=== PATIENT | female | born 1960 | race African-American/Black ===

== ENCOUNTER 2016-07-20 19:11 | Emergency (ER) | payer OTHER ==
[~2016-07-20] VITALS: Ht 162.6 cm; Wt 86.2 kg
[2016-07-20] MEDS ORDERED: MORPHINE SULFATE 4 MG/1 ML DISP.SYRIN IM ONE (19:45)
[2016-07-20] MEDS ORDERED: ONDANSETRON ODT 4 MG TAB.RAPDIS SL ONE (19:45)
[2016-07-20] MEDS ORDERED: MORPHINE SULFATE 4 MG/1 ML DISP.SYRIN ONE (19:50)
[2016-07-20] MEDS ORDERED: ONDANSETRON ODT 4 MG TAB.RAPDIS ONE (19:50)
[2016-07-20] MEDS ORDERED: CYCLOBENZAPRINE HCL 10 MG TABLET ONE (20:30)
[2016-07-20] MEDS ORDERED: CYCLOBENZAPRINE HCL 10 MG TABLET PO ONE (20:30)
--- NOTE | 2016-07-20 20:45 | NUR ---
Patient discharged to home in stable conditon. Written and verbal after care instructions given. Patient verbalizes understanding of instructions.
== END 2016-07-20 20:46 | disposition home or self-care (01) ==
LOC: ER 19:19
DX: S40.011A Contusion of right shoulder, initial encounter (principal); S70.01XA Contusion of right hip, initial encounter; M62.838 Other muscle spasm; W18.30XA Fall on same level, unspecified, initial encounter; Y93.89 Activity, other specified; Y99.8 Other external cause status; Y92.89 Other specified places as the place of occurrence of the external cause
CPT/HCPCS: 73030; 73502; 96372; 99284; A4663; J2270; Q0162

== ENCOUNTER 2016-07-26 22:46 | Emergency (ER) | payer OTHER ==
[~2016-07-26] VITALS: Ht 162.6 cm; Wt 86.2 kg
--- NOTE | 2016-07-26 23:00 | NUR ---
PT IN THE ROOM, STATED HAD FEVER TODAY AND WAS NOT FEELING WELL,CALLED 911 AND WAS STABLE . PT STILL NOT FEELING WELL SO THEY CAME TO ER.
[2016-07-26] MEDS ORDERED: KETOROLAC TROMETHAMINE 30 MG INJ IVP ONE (23:30)
[2016-07-26] MEDS ORDERED: IV NORMAL SALINE 1000 ML BAG IV ONE ×2 (23:30)
[2016-07-26] MEDS ORDERED: METOCLOPRAMIDE HCL 10 MG/2 ML VIAL IV ONE (23:30)
[2016-07-26] MEDS ORDERED: ACETAMINOPHEN ES 500 MG TABLET PO ONE (23:30)
[2016-07-26] MEDS ORDERED: MORPHINE SULFATE 2 MG/1 ML DISP.SYRIN IV ONE (23:30)
--- NOTE | 2016-07-26 23:49 | NUR ---
CALLED FOR SEPSIS, EKG,LABS AND FLUIDS STARTED ORDERED.
[2016-07-26] MEDS ORDERED: METOCLOPRAMIDE HCL 10 MG/2 ML VIAL ONE (23:50)
[2016-07-26] MEDS ORDERED: KETOROLAC TROMETHAMINE 30 MG INJ ONE (23:50)
[2016-07-26] MEDS ORDERED: MORPHINE SULFATE 4 MG/1 ML DISP.SYRIN ONE (23:51)
[2016-07-26 23:55] LABS: BASOPHILS % (AUTO) 0.2 % (0.0-2.0); EOSINOPHILS % (AUTO) 0.4 % (0.0-7.0); HEMATOCRIT 36.8 % (31.2-41.9); HEMOGLOBIN 12.8 g/dL (10.9-14.3); LYMPHOCYTES # (AUTO) 0.7 K/uL (20.0-40.0); LYMPHOCYTES % (AUTO) 9.6 % (20.5-51.5); MEAN CORPUSCULAR HEMOGLOBIN 28.5 uug (24.7-32.8); MEAN CORPUSCULAR HGB CONC 35 g/dL (32.3-35.6); MEAN CORPUSCULAR VOLUME 81.9 fL (75.5-95.3); MONOCYTES # (AUTO) 0.2 K/uL (2.0-10.0); MONOCYTES % (AUTO) 2.6 % (0.0-11.0); NEUTROPHILS # (AUTO) 6.5 K/uL (1.8-8.9); NEUTROPHILS % (AUTO) 87.2 % (38.5-71.5); PLATELET COUNT (AUTO) 282 K/uL (179-408); RED CELL DISTRIBUTION WIDTH 13.9 % (12.3-17.7); WHITE BLOOD COUNT (AUTO) 7.4 K/uL (3.8-11.8)
[2016-07-27 00:03] LABS: ALANINE AMINOTRANSFERASE 64 U/L (14-59); ALBUMIN 3.7 g/dL (3.4-5.0); ALKALINE PHOSPHATASE 161 U/L (50-136); ASPARTATE AMINOTRANSFERASE 62 U/L (15-37); BILIRUBIN,DIRECT < 0.1 mg/dL (0.0-0.2); BILIRUBIN,TOTAL 0.7 mg/dL (0.2-1.0); CALCIUM 9.7 mg/dL (8.5-10.1); CARBON DIOXIDE 25 mmol/L (21-32); CHLORIDE 103 mmol/L (98-107); CREATININE 0.9 mg/dL (0.6-1.3); GFR 78 mL/min (>60); GLUCOSE 107 mg/dL (74-106); POTASSIUM 4.9 mmol/L (3.5-5.1); SODIUM SERUM 139 mmol/L (136-145); TOTAL PROTEIN, SERUM 7.7 g/dL (6.4-8.2); UREA NITROGEN, BLOOD 19 mg/dL (7-18)
[2016-07-27] MEDS ORDERED: ACETAMINOPHEN ES 500 MG TABLET ONE (00:24)
--- NOTE | 2016-07-27 01:00 | NUR ---
URINE SENT TO LAB AND RESULTS IN. CAME TO SPEAK TO PT RE-RESULTS,PT REFUSED SPINAL TESTING. ANTIBIOTICS WILL BE GIVEN BEFORE GOING HOME, FLUIDS CONTINUES ORDERED.
[2016-07-27 01:09] LABS: *BILIRUBIN,URIN NEGATIVE (NEGATIVE); *BLOOD, URINE NEGATIVE (NEGATIVE); *CLARITY,URINE CLEAR (CLEAR); *COLOR,URINE YELLOW (YELLOW); *KETONES,URINE NEGATIVE (NEGATIVE); *PROTEIN,URINE NEGATIVE (NEGATIVE); *UROBILINOGEN,URINE 0.2 E.U./dl (NORMAL); LEUKOCYTE ESTERASE ,URINE NEGATIVE (NEGATIVE); NITRITE, URINE NEGATIVE (NEGATIVE); PH,URINE 6.5 (5.0-8.0); UGLUCOSE NEGATIVE (NEGATIVE)
[2016-07-27 01:14] LABS: BACTERIA,URINE FEW /HPF (NONE SEEN); RBC,URINE NONE SEEN /HPF (0-3); SQUAMOUS EPITHELIAL CELL,UR FEW /HPF (NONE SEEN); WBC,URINE 0-3 /HPF (0-3)
[2016-07-27] MEDS ORDERED: CEFTRIAXONE 1 G in IV DEXTROSE 5% 50 ML IV ONE (02:00)
[2016-07-27] MEDS ORDERED: CEFTRIAXONE 1 G VIAL ONE (02:10)
--- NOTE | 2016-07-27 03:00 | NUR ---
ANTIBIOTICS GIVEN IV WITHOUT ANY UNTOWARD REACTION.ACI AND AMA FORM SIGNED BY PT, ASSISTED TO DRESS UP,AND WALKED TO THE CAR STEADY GAIT, FAMILY DRIVING...GOING HOME.
--- NOTE | 2016-07-27 03:01 | NUR ---
PT ADVISED TO GO TO HER DR SOON POSS FOR FOLLOW-UP AND IF SYMPTOMS CONTINUES OR WORSE TO COME BACK.PT VERBALIZED UNDERSTANDING BEFORE GOING HOME.
[2016-07-27 03:18] VITALS: BP 130/62
== END 2016-07-27 03:20 | disposition home or self-care (01) ==
LOC: ER 22:50
DX: R50.9 Fever, unspecified (principal); R10.9 Unspecified abdominal pain; R30.0 Dysuria; R51 Headache; Z90.710 Acquired absence of both cervix and uterus
CPT/HCPCS: 36415; 71010; 83605; 85025; 85730; 87040; 87086; 93005; A4663; J0696; J1885; J2270; J2765; J7030; J7060

== ENCOUNTER 2016-07-29 10:38 | Emergency (ER) | payer OTHER ==
[~2016-07-29] VITALS: Ht 162.6 cm; Wt 90.7 kg
[2016-07-29] MEDS ORDERED: diphenhydrAMINE 50 MG/1 ML VIAL IV ONE (11:15)
[2016-07-29] MEDS ORDERED: IV NORMAL SALINE 1000 ML BAG IV ONE (11:15)
[2016-07-29] MEDS ORDERED: MIDAZOLAM HCL 2 MG/2 ML VIAL IV ONE (11:15)
[2016-07-29] MEDS ORDERED: PROCHLORPERAZINE EDISYLATE 10 MG/2 ML VIAL IV ONE (11:15)
[2016-07-29] MEDS ORDERED: PROCHLORPERAZINE EDISYLATE 10 MG/2 ML VIAL ONE (11:24)
[2016-07-29] MEDS ORDERED: diphenhydrAMINE 50 MG/1 ML VIAL ONE (11:24)
[2016-07-29 11:38] LABS: *BILIRUBIN,URIN NEGATIVE (NEGATIVE); *BLOOD, URINE NEGATIVE (NEGATIVE); *CLARITY,URINE CLEAR (CLEAR); *COLOR,URINE YELLOW (YELLOW); *KETONES,URINE NEGATIVE (NEGATIVE); *PROTEIN,URINE NEGATIVE (NEGATIVE); *UROBILINOGEN,URINE 0.2 E.U./dl (NORMAL); LEUKOCYTE ESTERASE ,URINE NEGATIVE (NEGATIVE); NITRITE, URINE NEGATIVE (NEGATIVE); UGLUCOSE NEGATIVE (NEGATIVE)
[2016-07-29 11:40] LABS: BASOPHILS % (AUTO) 0.6 % (0.0-2.0); EOSINOPHILS # (AUTO) 0.1 K/uL (0.0-0.7); EOSINOPHILS % (AUTO) 1.9 % (0.0-7.0); HEMATOCRIT 38.3 % (31.2-41.9); HEMOGLOBIN 12.8 g/dL (10.9-14.3); LYMPHOCYTES % (AUTO) 28.9 % (20.5-51.5); MEAN CORPUSCULAR HEMOGLOBIN 28.3 uug (24.7-32.8); MEAN CORPUSCULAR HGB CONC 34 g/dL (32.3-35.6); MEAN CORPUSCULAR VOLUME 84.5 fL (75.5-95.3); MONOCYTES # (AUTO) 0.4 K/uL (2.0-10.0); MONOCYTES % (AUTO) 5.3 % (0.0-11.0); NEUTROPHILS # (AUTO) 4.4 K/uL (1.8-8.9); NEUTROPHILS % (AUTO) 63.3 % (38.5-71.5); PLATELET COUNT (AUTO) 264 K/uL (179-408); RED BLOOD CELL COUNT(AUTO) 4.53 MIL/uL (3.63-4.92); WHITE BLOOD COUNT (AUTO) 6.9 K/uL (3.8-11.8)
[2016-07-29 11:46] LABS: RBC,URINE NONE SEEN /HPF (0-3); WBC,URINE 0-3 /HPF (0-3)
[2016-07-29 11:47] LABS: BACTERIA,URINE FEW /HPF (NONE SEEN); SQUAMOUS EPITHELIAL CELL,UR FEW /HPF (NONE SEEN)
[2016-07-29 11:52] LABS: ALBUMIN 3.9 g/dL (3.4-5.0); BILIRUBIN,DIRECT 0.1 mg/dL (0.0-0.2); BILIRUBIN,TOTAL 0.4 mg/dL (0.2-1.0); CALCIUM 9.4 mg/dL (8.5-10.1); CREATININE 0.9 mg/dL (0.6-1.3)
--- NOTE | 2016-07-29 12:10 | NUR ---
Patient is refusing lumbar puncture st this time even after signing the consent form, notified.
[2016-07-29] MEDS ORDERED: KETOROLAC TROMETHAMINE 15 MG INJ IVP ONE (12:15)
[2016-07-29] MEDS ORDERED: KETOROLAC TROMETHAMINE 15 MG INJ ONE (12:26)
--- NOTE | 2016-07-29 12:30 | NUR ---
Patient ambulated to bathroom 2x to void.
--- NOTE | 2016-07-29 13:03 | NUR ---
Patient is resting comfortably in bed with eyes closed. PATIENT IS PAIN FREE AT THIS TIME.
--- NOTE | 2016-07-29 13:23 | NUR ---
IV removed. Catheter intact and site benign. Pressure and 4x4 gauze applied to site. No bleeding noted.
--- NOTE | 2016-07-29 13:38 | NUR ---
Patient discharged to home in stable conditon. Written and verbal after care instructions given to patient and patient's family friend. Patient & friend verbalized understanding of instructions.
== END 2016-07-29 13:40 | disposition home or self-care (01) ==
LOC: ER 10:38
DX: J11.1 Influenza due to unidentified influenza virus with other respiratory manifestations (principal); R51 Headache; M54.9 Dorsalgia, unspecified; Z90.710 Acquired absence of both cervix and uterus
CPT/HCPCS: 36415; 70450; 85025; 86403; 87070; 87086; 87400; A4663; J0780; J1200; J1885; J3490; J7030

== ENCOUNTER 2017-07-02 02:05 | Emergency (ER) | payer OTHER ==
[~2017-07-02] VITALS: Ht 165.1 cm; Wt 85.7 kg
--- NOTE | 2017-07-02 02:27 | NUR ---
DR RAM, HANG MD AT BEDSIDE FOR MSE.
[2017-07-02] MEDS ORDERED: ONDANSETRON 4 MG/2 ML VIAL IV ONE (02:30)
[2017-07-02] MEDS ORDERED: MORPHINE SULFATE 2 MG/1 ML DISP.SYRIN IV ONE (02:30)
[2017-07-02] MEDS ORDERED: MORPHINE SULFATE 4 MG/1 ML DISP.SYRIN ONE ×2 (02:44→04:45)
[2017-07-02] MEDS ORDERED: ONDANSETRON 4 MG/2 ML VIAL ONE (02:44)
[2017-07-02 03:13] LABS: BASOPHILS # (AUTO) 0.1 K/uL (0.0-8.0); BASOPHILS % (AUTO) 0.8 % (0.0-2.0); EOSINOPHILS # (AUTO) 0.2 K/uL (0.0-0.7); EOSINOPHILS % (AUTO) 3.4 % (0.0-7.0); LYMPHOCYTES # (AUTO) 3.3 K/uL (20.0-40.0); MEAN CORPUSCULAR HEMOGLOBIN 28.4 uug (24.7-32.8); MEAN CORPUSCULAR HGB CONC 33 g/dL (32.3-35.6); MEAN CORPUSCULAR VOLUME 85.6 fL (75.5-95.3); MONOCYTES # (AUTO) 0.4 K/uL (2.0-10.0); MONOCYTES % (AUTO) 6.1 % (0.0-11.0); NEUTROPHILS # (AUTO) 3.1 K/uL (1.8-8.9); NEUTROPHILS % (AUTO) 43.7 % (38.5-71.5); PLATELET COUNT (AUTO) 303 K/uL (179-408); WHITE BLOOD COUNT (AUTO) 7.1 K/uL (3.8-11.8)
[2017-07-02] MEDS ORDERED: KETAMINE HCL 500 MG/10 ML INJ IV ONE ×2 (03:15→04:45)
--- NOTE | 2017-07-02 03:18 | NUR ---
XRAY AT PT BEDSIDE.
[2017-07-02 03:21] LABS: BILIRUBIN,DIRECT 0.1 mg/dL (0.0-0.2); BILIRUBIN,TOTAL 0.3 mg/dL (0.2-1.0); POTASSIUM 3.9 mmol/L (3.5-5.1); TOTAL PROTEIN, SERUM 7.5 g/dL (6.4-8.2)
[2017-07-02] MEDS ORDERED: methylPREDNISolone SOD SUCC 125 MG/2 ML VIAL IV ONE (04:30)
[2017-07-02] MEDS ORDERED: methylPREDNISolone SOD SUCC 125 MG/2 ML VIAL ONE (04:34)
[2017-07-02] MEDS ORDERED: MORPHINE SULFATE 4 MG/1 ML DISP.SYRIN IV ONE (05:00)
--- NOTE | 2017-07-02 05:12 | NUR ---
Patient discharged to home in stable conditon. Written and verbal after care instructions given. Patient verbalizes understanding of instructions. IV removed, catheter intact. pressure applies. No bleeding noted at site.
[2017-07-02 05:23] VITALS: BP 120/73
== END 2017-07-02 05:24 | disposition home or self-care (01) ==
LOC: ER 02:08
DX: S49.92XA Unspecified injury of left shoulder and upper arm, initial encounter (principal); Z90.710 Acquired absence of both cervix and uterus; X58.XXXA Exposure to other specified factors, initial encounter; Y93.89 Activity, other specified; Y92.89 Other specified places as the place of occurrence of the external cause; Y99.8 Other external cause status
CPT/HCPCS: 36415; 70030-TC; 71045; 73020; 85025; 85730; 93005; A4663; J2270; J2405; J2930